=== PATIENT | female | born 1950 | race Caucasian/White ===

== ENCOUNTER 2021-05-29 12:56 | Inpatient (IN) ==
[2021-05-29 14:54] LABS: Basophils % 0.3 % (0.0-0.8); Eosinophils % 0.1 % (0.00-10.9); Hematocrit 29.1 VOL% (35.7-47.0); Hemoglobin 9.4 GM/DL (12.0-16.0); Immature Granulocytes % 1.5 %; Immature Granulocytes Absolute 0.11 #; Lymphocytes # 1.6 10*3/uL (1.4-4.0); Lymphocytes % 21.6 % (21.3-54.2); Mean Corpuscular HGB Conc 32.3 GM/DL (32-36); Mean Corpuscular Volume 100.3 FL (87-102); Mean Platelet Volume 10.1 FL (9.6-12.0); Monocytes % 6.6 % (1.7-12.7); Neutrophils % 69.9 % (38.7-73.9); Platelet Count 106 T/CUMM (130-400); White Blood Count 7.6 T/CUMM (4-12)
[2021-05-29 15:13] LABS: Alanine Aminotransferase 23 U/L (13-56); Albumin 2.3 G/DL (3.4-5.0); Alkaline Phosphatase 79 U/L (45-117); Aspartate Amino Transferase 20 U/L (0-37); Bilirubin,Total < 0.39 MG/DL (0.20-1.00); Blood Urea Nitrogen 42 MG/DL (7-18); Calcium 7.7 MG/DL (8.5-10.1); Carbon Dioxide 22 MMOL/L (21-32); Estimated Glom Filtration Rate 7 ML/MIN; Glucose 220 MG/DL (74-106); Osmolality,Calculated 274.1 MOS/KG (273-304); Potassium 3.8 MMOL/L (3.5-5.1); Sodium 128 MMOL/L (136-145); Total Protein 6.1 G/DL (6.4-8.2)
[2021-05-29] MEDS ORDERED: methylPREDNISolone SOD SUC 125 MG/2 ML VIAL IV STA (16:50)
[2021-05-29] MEDS ORDERED: FAMOTIDINE 20 MG/2 ML VIAL IV STA (16:50)
[2021-05-29] MEDS ORDERED: diphenhydrAMINE 50 MG/1 ML VIAL IV STA (16:50)
[2021-05-29] MEDS ORDERED: ACETAMINOPHEN 325 MG TABLET PO PRN (19:27)
[2021-05-29] MEDS ORDERED: GLUCAGON 1 MG VIAL IM PRN (19:27)
[2021-05-29] MEDS ORDERED: DEXTROSE 10% 250 ML BAG IV PRN (19:44)
[2021-05-29] MEDS ORDERED: SODIUM CHLORIDE 0.9% 1,000 ML IV SCH (20:00)
[2021-05-29] MEDS: PIPERACILLIN/TAZOBACTAM 3,375 MG in SODIUM CHLORIDE 0.9% 100 ML IV SCH (20:15)
[2021-05-29] MEDS: HEPARIN 5,000 UNIT/1 ML VIAL SUBCUT SCH (20:15)
[2021-05-29] MEDS: ASCORBIC ACID 500 MG TABLET PO SCH (21:53)
[2021-05-29] MEDS: INSULIN REGULAR 100 UNIT/ML SUBCUT SCH (22:25)
[2021-05-30] MEDS: BUDESONIDE/FORMOTEROL 160-4.5 INHALER 6 GM INH SCH ×3 (00:20→21:23)
[2021-05-30 04:06] LABS: Basophils % 0.2 % (0.0-0.8); Hematocrit 24.7 VOL% (35.7-47.0); Immature Granulocytes % 1.6 %; Immature Granulocytes Absolute 0.08 #; Lymphocytes # 0.8 10*3/uL (1.4-4.0); Lymphocytes % 15.1 % (21.3-54.2); Mean Corpuscular HGB Conc 32.4 GM/DL (32-36); Mean Platelet Volume 11.3 FL (9.6-12.0); Monocytes % 4.6 % (1.7-12.7); Neutrophils % 78.5 % (38.7-73.9); Platelet Count 110 T/CUMM (130-400); Red Blood Count 2.47 MC/CUMM (3.8-5.5); Red Cell Distribution Width 12.9 % (9.3-17.3)
[2021-05-30 04:25] LABS: Calcium 7.5 MG/DL (8.5-10.1); Osmolality,Calculated 280.1 MOS/KG (273-304); Potassium 5.2 MMOL/L (3.5-5.1)
[2021-05-30 04:34] LABS: Ferritin 1311.2 ng/mL (8-252)
[2021-05-30 04:51] LABS: Band Neutrophils 11 % (0-10); Hypochromia Slight; Lymphocytes 18 % (20-55); Macrocytosis Slight; Ovalocytes Slight; Platelet Estimate Normal; Segmented Neutrophils 67 % (50-85); Total Cells Counted 100
[2021-05-30] MEDS: HEPARIN 5,000 UNIT/1 ML VIAL SUBCUT SCH ×3 (05:50→21:22)
[2021-05-30] MEDS ORDERED: CHOLECALCIFEROL 1,000 UNIT TABLET PO SCH (09:00)
[2021-05-30] MEDS: INSULIN REGULAR 100 UNIT/ML SUBCUT SCH ×4 (09:16→21:21)
[2021-05-30] MEDS: PIPERACILLIN/TAZOBACTAM 3,375 MG in SODIUM CHLORIDE 0.9% 100 ML IV SCH ×2 (09:17→21:23)
[2021-05-30] MEDS: DEXAMETHASONE 4 MG/1 ML VIAL IV SCH (09:20)
[2021-05-30] MEDS: ZINC GLUCONATE 50 MG TABLET PO SCH (09:21)
[2021-05-30] MEDS: CETIRIZINE 10 MG TABLET PO SCH (09:22)
[2021-05-30] MEDS: ASCORBIC ACID 500 MG TABLET PO SCH ×2 (09:24→21:22)
[2021-05-30] MEDS ORDERED: MELATONIN 3 MG TABLET PO SCH (21:00)
[2021-05-30] MEDS: carvediloL 25 MG TABLET PO SCH (21:22)
[2021-05-30] MEDS: risperiDONE 1 MG TABLET PO SCH (21:22)
[2021-05-30] MEDS: ATORVASTATIN 40 MG TABLET PO SCH (21:22)
[2021-05-30] MEDS: RANOLAZINE 500 MG TABLET PO SCH (21:22)
[2021-05-30] MEDS: FAMOTIDINE 20 MG TABLET PO SCH (21:22)
[2021-05-31] MEDS: HEPARIN 5,000 UNIT/1 ML VIAL SUBCUT SCH ×3 (03:55→21:08)
[2021-05-31 05:15] LABS: Hematocrit 23.7 VOL% (35.7-47.0); Immature Granulocytes % 1.3 %; Immature Granulocytes Absolute 0.06 #; Lymphocytes # 1.4 10*3/uL (1.4-4.0); Lymphocytes % 29.5 % (21.3-54.2); Mean Corpuscular HGB Conc 33.8 GM/DL (32-36); Mean Corpuscular Volume 98.8 FL (87-102); Mean Platelet Volume 10.1 FL (9.6-12.0); Neutrophils % 61.2 % (38.7-73.9); Platelet Count 122 T/CUMM (130-400); Red Cell Distribution Width 12.6 % (9.3-17.3); White Blood Count 4.6 T/CUMM (4-12)
[2021-05-31 05:45] LABS: Alanine Aminotransferase 20 U/L (13-56); Alkaline Phosphatase 58 U/L (45-117); Aspartate Amino Transferase 22 U/L (0-37); Bilirubin,Total < 0.39 MG/DL (0.20-1.00); Blood Urea Nitrogen 48 MG/DL (7-18); Calcium 7.7 MG/DL (8.5-10.1); Carbon Dioxide 20 MMOL/L (21-32); Estimated Glom Filtration Rate 8 ML/MIN; Glucose 52 MG/DL (74-106); Osmolality,Calculated 279.1 MOS/KG (273-304); Potassium 3.3 MMOL/L (3.5-5.1); Sodium 135 MMOL/L (136-145); Total Protein 5.6 G/DL (6.4-8.2)
[2021-05-31 05:50] LABS: Osmolality,Calculated 277.2 MOS/KG (273-304); Potassium 3.2 MMOL/L (3.5-5.1)
[2021-05-31 05:53] LABS: Ferritin 1268.4 ng/mL (8-252)
[2021-05-31] MEDS ORDERED: POTASSIUM CHLORIDE 20 MEQ TABLET PO PRN (07:34)
[2021-05-31] MEDS: ASCORBIC ACID 500 MG TABLET PO SCH ×2 (09:54→21:13)
[2021-05-31] MEDS: buPROPion SR 100 MG TABLET PO SCH (09:54)
[2021-05-31] MEDS: CHOLECALCIFEROL 5,000 UNIT TABLET PO SCH (09:54)
[2021-05-31] MEDS: RANOLAZINE 500 MG TABLET PO SCH ×2 (09:54→21:08)
[2021-05-31] MEDS: SERTRALINE 100 MG TABLET PO SCH (09:54)
[2021-05-31] MEDS: EZETIMIBE 10 MG TABLET PO SCH (09:54)
[2021-05-31] MEDS: carvediloL 25 MG TABLET PO SCH (09:54)
[2021-05-31] MEDS: CETIRIZINE 10 MG TABLET PO SCH (09:54)
[2021-05-31] MEDS: ZINC GLUCONATE 50 MG TABLET PO SCH (09:54)
[2021-05-31] MEDS: DEXAMETHASONE 4 MG/1 ML VIAL IV SCH (09:55)
[2021-05-31] MEDS: INSULIN REGULAR 100 UNIT/ML SUBCUT SCH ×4 (09:55→21:08)
[2021-05-31] MEDS: PIPERACILLIN/TAZOBACTAM 3,375 MG in SODIUM CHLORIDE 0.9% 100 ML IV SCH (09:56)
[2021-05-31] MEDS: BUDESONIDE/FORMOTEROL 160-4.5 INHALER 6 GM INH SCH ×2 (09:56→21:08)
[2021-05-31] MEDS: AZITHROMYCIN 250 MG TABLET PO SCH (12:15)
[2021-05-31] MEDS: cefTRIAXone 1,000 MG in SODIUM CHLORIDE 0.9% 100 ML IV SCH (16:11)
[2021-05-31] MEDS: risperiDONE 1 MG TABLET PO SCH (21:09)
[2021-05-31] MEDS: ATORVASTATIN 40 MG TABLET PO SCH (21:09)
[2021-05-31] MEDS: FAMOTIDINE 20 MG TABLET PO SCH (21:09)
[2021-05-31] MEDS: ONDANSETRON 4 MG/2 ML VIAL IV PRN (23:49)
[2021-06-01] MEDS: HEPARIN 5,000 UNIT/1 ML VIAL SUBCUT SCH ×3 (04:57→21:27)
[2021-06-01 05:28] LABS: Hematocrit 23.6 VOL% (35.7-47.0); Hemoglobin 7.6 GM/DL (12.0-16.0); Immature Granulocytes % 1.8 %; Immature Granulocytes Absolute 0.06 #; Lymphocytes % 29.8 % (21.3-54.2); Mean Corpuscular HGB Conc 32.2 GM/DL (32-36); Mean Corpuscular Volume 100.9 FL (87-102); Mean Platelet Volume 9.9 FL (9.6-12.0); Monocytes % 8.3 % (1.7-12.7); Neutrophils % 60.1 % (38.7-73.9); Platelet Count 109 T/CUMM (130-400); Red Blood Count 2.34 MC/CUMM (3.8-5.5); Red Cell Distribution Width 12.8 % (9.3-17.3); White Blood Count 3.3 T/CUMM (4-12)
[2021-06-01 05:35] LABS: Ferritin 1193.2 ng/mL (8-252)
[2021-06-01 05:58] LABS: Calcium 8.2 MG/DL (8.5-10.1); Osmolality,Calculated 282.1 MOS/KG (273-304)
[2021-06-01] MEDS ORDERED: POTASSIUM CHLORIDE 20 MEQ TABLET PO SCH (09:00)
[2021-06-01] MEDS: RANOLAZINE 500 MG TABLET PO SCH ×2 (09:25→21:27)
[2021-06-01] MEDS: buPROPion SR 100 MG TABLET PO SCH (09:25)
[2021-06-01] MEDS: CETIRIZINE 10 MG TABLET PO SCH (09:25)
[2021-06-01] MEDS: SERTRALINE 100 MG TABLET PO SCH (09:25)
[2021-06-01] MEDS: ASCORBIC ACID 500 MG TABLET PO SCH ×2 (09:25→21:27)
[2021-06-01] MEDS: AZITHROMYCIN 250 MG TABLET PO SCH (09:26)
[2021-06-01] MEDS: CHOLECALCIFEROL 5,000 UNIT TABLET PO SCH (09:26)
[2021-06-01] MEDS: ZINC GLUCONATE 50 MG TABLET PO SCH (09:26)
[2021-06-01] MEDS: DEXAMETHASONE 4 MG/1 ML VIAL IV SCH (09:26)
[2021-06-01] MEDS: INSULIN REGULAR 100 UNIT/ML SUBCUT SCH ×4 (09:26→21:27)
[2021-06-01] MEDS: EZETIMIBE 10 MG TABLET PO SCH (09:26)
[2021-06-01] MEDS: BUDESONIDE/FORMOTEROL 160-4.5 INHALER 6 GM INH SCH ×2 (09:27→21:36)
[2021-06-01] MEDS: ONDANSETRON 4 MG/2 ML VIAL IV PRN (09:41)
[2021-06-01] MEDS: cefTRIAXone 1,000 MG in SODIUM CHLORIDE 0.9% 100 ML IV SCH (16:52)
[2021-06-01] MEDS ORDERED: POLYETHYLENE GLYCOL POWDER 17 GM PACK PO PRN (18:28)
[2021-06-01] MEDS: risperiDONE 1 MG TABLET PO SCH (21:27)
[2021-06-01] MEDS: FAMOTIDINE 20 MG TABLET PO SCH (21:27)
[2021-06-01] MEDS: ATORVASTATIN 40 MG TABLET PO SCH (21:27)
[2021-06-01] MEDS: POTASSIUM CHLORIDE 20 MEQ TABLET PO SCH (21:27)
[2021-06-02] MEDS: HEPARIN 5,000 UNIT/1 ML VIAL SUBCUT SCH ×3 (04:52→20:26)
[2021-06-02 07:10] LABS: Eosinophils % 0.2 % (0.00-10.9); Hematocrit 26.6 VOL% (35.7-47.0); Hemoglobin 8.5 GM/DL (12.0-16.0); Immature Granulocytes % 3.8 %; Immature Granulocytes Absolute 0.16 #; Lymphocytes # 1.4 10*3/uL (1.4-4.0); Lymphocytes % 32.6 % (21.3-54.2); Mean Corpuscular Volume 101.9 FL (87-102); Mean Platelet Volume 10.1 FL (9.6-12.0); Monocytes % 7.9 % (1.7-12.7); Neutrophils % 55.5 % (38.7-73.9); Platelet Count 133 T/CUMM (130-400); Red Blood Count 2.61 MC/CUMM (3.8-5.5); Red Cell Distribution Width 13.1 % (9.3-17.3); White Blood Count 4.2 T/CUMM (4-12)
[2021-06-02 07:51] LABS: Calcium 8.8 MG/DL (8.5-10.1); Potassium 3.1 MMOL/L (3.5-5.1)
[2021-06-02] MEDS ORDERED: POTASSIUM CHLORIDE 20 MEQ TABLET PO ONE (08:10)
[2021-06-02 09:20] LABS: % Iron Saturation 94.4 % (18-50)
[2021-06-02] MEDS: INSULIN REGULAR 100 UNIT/ML SUBCUT SCH ×4 (09:40→20:40)
[2021-06-02] MEDS: DEXAMETHASONE 4 MG/1 ML VIAL IV SCH (09:42)
[2021-06-02] MEDS: ZINC GLUCONATE 50 MG TABLET PO SCH (09:43)
[2021-06-02] MEDS: RANOLAZINE 500 MG TABLET PO SCH ×2 (09:43→20:25)
[2021-06-02] MEDS: ASCORBIC ACID 500 MG TABLET PO SCH ×2 (09:43→20:25)
[2021-06-02] MEDS: CETIRIZINE 10 MG TABLET PO SCH (09:43)
[2021-06-02] MEDS: EZETIMIBE 10 MG TABLET PO SCH (09:43)
[2021-06-02] MEDS: buPROPion SR 100 MG TABLET PO SCH (09:43)
[2021-06-02] MEDS: SERTRALINE 100 MG TABLET PO SCH (09:44)
[2021-06-02] MEDS: CHOLECALCIFEROL 5,000 UNIT TABLET PO SCH (09:44)
[2021-06-02] MEDS: AZITHROMYCIN 250 MG TABLET PO SCH (09:44)
[2021-06-02] MEDS: BUDESONIDE/FORMOTEROL 160-4.5 INHALER 6 GM INH SCH ×2 (09:47→20:40)
[2021-06-02] MEDS: POTASSIUM CHLORIDE 20 MEQ TABLET PO SCH ×2 (09:47→20:25)
[2021-06-02] MEDS: INSULIN GLARGINE 100 UNIT/ML SUBCUT SCH (12:10)
[2021-06-02] MEDS: cefTRIAXone 1,000 MG in SODIUM CHLORIDE 0.9% 100 ML IV SCH (17:19)
[2021-06-02] MEDS: FAMOTIDINE 20 MG TABLET PO SCH (20:25)
[2021-06-02] MEDS: ATORVASTATIN 40 MG TABLET PO SCH (20:25)
[2021-06-02] MEDS: risperiDONE 1 MG TABLET PO SCH (20:26)
[2021-06-03] MEDS: HEPARIN 5,000 UNIT/1 ML VIAL SUBCUT SCH ×2 (03:58→12:07)
[2021-06-03 06:19] LABS: Eosinophils % 0.4 % (0.00-10.9); Hematocrit 24.5 VOL% (35.7-47.0); Hemoglobin 7.8 GM/DL (12.0-16.0); Immature Granulocytes % 7.2 %; Immature Granulocytes Absolute 0.36 #; Lymphocytes # 1.8 10*3/uL (1.4-4.0); Lymphocytes % 36.5 % (21.3-54.2); Mean Corpuscular HGB Conc 31.8 GM/DL (32-36); Mean Corpuscular Volume 103.4 FL (87-102); Mean Platelet Volume 9.5 FL (9.6-12.0); Monocytes % 9.6 % (1.7-12.7); Neutrophils % 46.3 % (38.7-73.9); Platelet Count 125 T/CUMM (130-400); Red Blood Count 2.37 MC/CUMM (3.8-5.5); Red Cell Distribution Width 13.2 % (9.3-17.3)
[2021-06-03 06:48] LABS: Hypochromia 1+; Lymphocytes 31 % (20-55); Microcytosis Slight; Platelet Estimate Normal; Segmented Neutrophils 62 % (50-85); Total Cells Counted 100
[2021-06-03 06:53] LABS: Calcium 8.7 MG/DL (8.5-10.1); Ferritin 1111.8 ng/mL (8-252); Osmolality,Calculated 285.3 MOS/KG (273-304); Potassium 4.3 MMOL/L (3.5-5.1)
[2021-06-03] MEDS: INSULIN REGULAR 100 UNIT/ML SUBCUT SCH ×3 (08:39→17:30)
[2021-06-03] MEDS: SERTRALINE 100 MG TABLET PO SCH (09:57)
[2021-06-03] MEDS: buPROPion SR 100 MG TABLET PO SCH (09:57)
[2021-06-03] MEDS: EZETIMIBE 10 MG TABLET PO SCH (09:57)
[2021-06-03] MEDS: RANOLAZINE 500 MG TABLET PO SCH (09:58)
[2021-06-03] MEDS: CETIRIZINE 10 MG TABLET PO SCH (09:58)
[2021-06-03] MEDS: POTASSIUM CHLORIDE 20 MEQ TABLET PO SCH (09:58)
[2021-06-03] MEDS: ZINC GLUCONATE 50 MG TABLET PO SCH (09:58)
[2021-06-03] MEDS: AZITHROMYCIN 250 MG TABLET PO SCH (09:58)
[2021-06-03] MEDS: CHOLECALCIFEROL 5,000 UNIT TABLET PO SCH (09:58)
[2021-06-03] MEDS: ASCORBIC ACID 500 MG TABLET PO SCH (09:58)
[2021-06-03] MEDS: INSULIN GLARGINE 100 UNIT/ML SUBCUT SCH (10:00)
[2021-06-03] MEDS: DEXAMETHASONE 4 MG/1 ML VIAL IV SCH (10:25)
[2021-06-03] MEDS: BUDESONIDE/FORMOTEROL 160-4.5 INHALER 6 GM INH SCH (10:27)
[2021-06-03] MEDS: ONDANSETRON 4 MG/2 ML VIAL IV PRN (12:31)
[2021-06-03 17:31] VITALS: BP 106/72
[2021-06-03] MEDS: cefTRIAXone 1,000 MG in SODIUM CHLORIDE 0.9% 100 ML IV SCH (19:36)
== END 2021-06-03 17:51 | disposition home or self-care (01) | DRG 177 ==
LOC: EDBD → EDUNIT# → N.ED 12:56 → N.EDINP 19:25 → N.5E 05-30 16:28
PROVIDERS: ADMIT Internal Medicine; ATTEND Internal Medicine

== ENCOUNTER 2021-06-14 10:02 | Inpatient (IN) ==
[2021-06-14] MEDS ORDERED: SODIUM CHLORIDE 0.9% 1,000 ML IV STA ×2 (10:36→11:47)
[2021-06-14 10:47] LABS: Basophils % 0.1 % (0.0-0.8); Eosinophils % 0.4 % (0.00-10.9); Hematocrit 33.2 VOL% (35.7-47.0); Hemoglobin 10.8 GM/DL (12.0-16.0); Immature Granulocytes % 5.2 %; Lymphocytes # 1.1 10*3/uL (1.4-4.0); Lymphocytes % 14.1 % (21.3-54.2); Mean Corpuscular HGB Conc 32.5 GM/DL (32-36); Mean Corpuscular Volume 102.8 FL (87-102); Mean Platelet Volume 10.5 FL (9.6-12.0); Monocytes % 7.2 % (1.7-12.7); NRBC # 0.03 10*3/uL; Platelet Count 141 T/CUMM (130-400); Red Blood Count 3.23 MC/CUMM (3.8-5.5); Red Cell Distribution Width 14.1 % (9.3-17.3); White Blood Count 7.6 T/CUMM (4-12)
[2021-06-14 11:10] LABS: Hypochromia 1+; Lymphocytes 12 % (20-55); Microcytosis 1+; Platelet Estimate Adequate; Segmented Neutrophils 79 % (50-85); Total Cells Counted 100
[2021-06-14 11:31] LABS: Albumin 2.7 G/DL (3.4-5.0); Bilirubin,Total 0.6 MG/DL (0.20-1.00); Calcium 8.9 MG/DL (8.5-10.1); Osmolality,Calculated 282.1 MOS/KG (273-304); Total Protein 5.9 G/DL (6.4-8.2)
[2021-06-14 11:41] LABS: Potassium 6.2 MMOL/L (3.5-5.1)
[2021-06-14] MEDS ORDERED: INSULIN REGULAR 100 UNIT/ML IV STA (11:46)
[2021-06-14] MEDS ORDERED: DEXTROSE 50% 25 GM/50 ML VIAL IV STA (11:46)
[2021-06-14] MEDS ORDERED: SODIUM BICARBONATE 50 MEQ/50 ML VIAL IV STA (11:46)
[2021-06-14 11:47] LABS: Bilirubin,Urine Negative (Negative); Blood, Urine Negative (Negative); Glucose,Urine (UA) 50 mg/dL (Negative); Ketones,Urine Negative (Negative); Nitrite,Urine Negative (Negative); Protein,Urine 30 MG/DL; Squamous Epithelial Cell,Urine Occasional /HPF (0-10); Urine Appearance Slightly Hazy (Clear); Urine Color Amber (Yellow); Urine Specific Gravity 1.018 (1.001-1.035); Urine Urobilinogen < 2.0 EU/DL (<2.0)
[2021-06-14] MEDS ORDERED: DEXTROSE 50% 25 GM/50 ML SYRINGE IV ONE (12:01)
[2021-06-14] MEDS ORDERED: ACETAMINOPHEN 325 MG TABLET PO PRN (14:01)
[2021-06-14] MEDS ORDERED: DEXTROSE 50% 25 GM/50 ML VIAL IV PRN (14:01)
[2021-06-14] MEDS ORDERED: ONDANSETRON 4 MG/2 ML VIAL IV PRN (14:01)
[2021-06-14] MEDS ORDERED: GLUCAGON 1 MG VIAL IM PRN ×2 (14:01)
[2021-06-14] MEDS ORDERED: AZITHROMYCIN INJ 500 MG in SODIUM CHLORIDE 0.9% 250 ML IV ONE (14:07)
[2021-06-14] MEDS ORDERED: ALBUTEROL 2.5 MG/3 ML NEB RESP TX PRN (14:56)
[2021-06-14] MEDS: CETIRIZINE 10 MG TABLET PO SCH (14:57)
[2021-06-14] MEDS: INSULIN LISPRO 100 UNIT/ML SUBCUT SCH ×2 (16:20→22:11)
[2021-06-14] MEDS: cefTRIAXone 1,000 MG in SODIUM CHLORIDE 0.9% 100 ML IV SCH (18:01)
[2021-06-14] MEDS ORDERED: risperiDONE 1 MG TABLET PO SCH (21:00)
[2021-06-14] MEDS: ATORVASTATIN 40 MG TABLET PO SCH (22:11)
[2021-06-14] MEDS: RANOLAZINE 500 MG TABLET PO SCH (22:11)
[2021-06-14] MEDS: ASCORBIC ACID 500 MG TABLET PO SCH (22:11)
[2021-06-14] MEDS: APIXABAN 2.5 MG TABLET PO SCH (22:11)
[2021-06-15 05:57] LABS: Basophils % 0.1 % (0.0-0.8); Eosinophils % 0.3 % (0.00-10.9); Hemoglobin 7.4 GM/DL (12.0-16.0); Immature Granulocytes % 5.9 %; Lymphocytes # 1.2 10*3/uL (1.4-4.0); Lymphocytes % 17.5 % (21.3-54.2); Mean Corpuscular HGB Conc 30.8 GM/DL (32-36); Mean Corpuscular Volume 106.7 FL (87-102); Monocytes % 8.5 % (1.7-12.7); NRBC # 0.02 10*3/uL; Neutrophils % 67.7 % (38.7-73.9); Platelet Count 141 T/CUMM (130-400); Red Blood Count 2.25 MC/CUMM (3.8-5.5); Red Cell Distribution Width 14.2 % (9.3-17.3); White Blood Count 6.7 T/CUMM (4-12)
[2021-06-15 06:24] LABS: Anisocytosis 2+; Band Neutrophils 6 % (0-10); Lymphocytes 19 % (20-55); Nucleated Red Blood Cells 1 (0-5); Platelet Estimate Adequate; Segmented Neutrophils 67 % (50-85); Total Cells Counted 100
[2021-06-15 06:25] LABS: Macrocytosis 1+
[2021-06-15 06:29] LABS: Albumin 2.2 G/DL (3.4-5.0); Bilirubin,Total 0.5 MG/DL (0.20-1.00); Calcium 8.7 MG/DL (8.5-10.1); Ferritin 1258.2 ng/mL (8-252); Osmolality,Calculated 286.2 MOS/KG (273-304); Potassium 5.5 MMOL/L (3.5-5.1); Total Protein 5.5 G/DL (6.4-8.2)
[2021-06-15] MEDS: DEXTROSE 10% 250 ML BAG IV PRN ×2 (06:43→15:37)
[2021-06-15] MEDS ORDERED: SODIUM POLYSTYRENE SULFATE 15 GM/60 ML BOTTLE PO ONE (08:22)
[2021-06-15] MEDS ORDERED: buPROPion SR 100 MG TABLET PO SCH (09:00)
[2021-06-15] MEDS: INSULIN LISPRO 100 UNIT/ML SUBCUT SCH ×3 (12:02→20:50)
[2021-06-15] MEDS: DEXAMETHASONE 4 MG/1 ML VIAL IV SCH (13:58)
[2021-06-15] MEDS: PANTOPRAZOLE 40 MG TABLET PO SCH (14:06)
[2021-06-15] MEDS: RANOLAZINE 500 MG TABLET PO SCH ×2 (14:06→20:22)
[2021-06-15] MEDS: APIXABAN 2.5 MG TABLET PO SCH ×2 (14:06→20:22)
[2021-06-15] MEDS: CHOLECALCIFEROL 5,000 UNIT TABLET PO SCH (14:07)
[2021-06-15] MEDS: calcitrioL 0.25 MCG CAPSULE PO SCH (14:07)
[2021-06-15] MEDS: ZINC GLUCONATE 50 MG TABLET PO SCH (14:07)
[2021-06-15] MEDS: ASCORBIC ACID 500 MG TABLET PO SCH ×2 (14:07→20:22)
[2021-06-15] MEDS: EZETIMIBE 10 MG TABLET PO SCH (14:07)
[2021-06-15] MEDS: SERTRALINE 100 MG TABLET PO SCH (14:08)
[2021-06-15] MEDS: CETIRIZINE 10 MG TABLET PO SCH (14:08)
[2021-06-15] MEDS: AZITHROMYCIN 250 MG TABLET PO SCH (14:08)
[2021-06-15] MEDS ORDERED: SODIUM POLYSTYRENE SULFATE 15 GM/60 ML BOTTLE RECTAL ONE (14:53)
[2021-06-15] MEDS ORDERED: FLUCONAZOLE INJ 200 MG/100 ML PREMIX IV ONE (16:00)
[2021-06-15] MEDS: DEXTROSE 10% 1,000 ML IV SCH (19:14)
[2021-06-15] MEDS: cefTRIAXone 1,000 MG in SODIUM CHLORIDE 0.9% 100 ML IV SCH (19:15)
[2021-06-15] MEDS: ATORVASTATIN 40 MG TABLET PO SCH (20:22)
[2021-06-15] MEDS: DESITIN 4OZ/NYSTATIN 15 GRAM MIXTURE PASTE TOP SCH (21:07)
[2021-06-16 05:59] LABS: Hematocrit 21.8 VOL% (35.7-47.0); Hemoglobin 6.8 GM/DL (12.0-16.0); Lymphocytes % 20.6 % (21.3-54.2); Mean Corpuscular HGB Conc 31.2 GM/DL (32-36); Mean Corpuscular Volume 105.8 FL (87-102); Mean Platelet Volume 10.1 FL (9.6-12.0); Monocytes % 5.8 % (1.7-12.7); NRBC # 0.02 10*3/uL; Neutrophils % 67.6 % (38.7-73.9); Platelet Count 159 T/CUMM (130-400); Red Blood Count 2.06 MC/CUMM (3.8-5.5); Red Cell Distribution Width 14.3 % (9.3-17.3)
[2021-06-16 06:14] LABS: Calcium 8.1 MG/DL (8.5-10.1); Osmolality,Calculated 294.2 MOS/KG (273-304); Potassium 4.8 MMOL/L (3.5-5.1)
[2021-06-16] MEDS ORDERED: SODIUM CHLORIDE 0.9% 1,000 ML IV PRN (07:44)
[2021-06-16 07:47] LABS: Anisocytosis 2+; Band Neutrophils 13 % (0-10); Eosinophils 1 % (0-10); Lymphocytes 18 % (20-55); Metamyelocytes 1 %; Myelocytes 1 %; Nucleated Red Blood Cells 2 (0-5); Platelet Estimate Normal; Promyelocytes 1 %; Segmented Neutrophils 61 % (50-85); Spherocytes Few; Total Cells Counted 100
[2021-06-16 07:48] LABS: Macrocytosis 1+; Ovalocytes Few
[2021-06-16] MEDS: INSULIN LISPRO 100 UNIT/ML SUBCUT SCH ×4 (11:14→21:38)
[2021-06-16] MEDS: ZINC GLUCONATE 50 MG TABLET PO SCH (11:27)
[2021-06-16] MEDS: EZETIMIBE 10 MG TABLET PO SCH (11:27)
[2021-06-16] MEDS: APIXABAN 2.5 MG TABLET PO SCH ×2 (11:27→21:38)
[2021-06-16] MEDS: SERTRALINE 100 MG TABLET PO SCH (11:28)
[2021-06-16] MEDS: RANOLAZINE 500 MG TABLET PO SCH ×2 (11:29→21:39)
[2021-06-16] MEDS: CETIRIZINE 10 MG TABLET PO SCH (11:29)
[2021-06-16] MEDS: CHOLECALCIFEROL 5,000 UNIT TABLET PO SCH (11:29)
[2021-06-16] MEDS: PANTOPRAZOLE 40 MG TABLET PO SCH (11:30)
[2021-06-16] MEDS: AZITHROMYCIN 250 MG TABLET PO SCH (11:30)
[2021-06-16] MEDS: calcitrioL 0.25 MCG CAPSULE PO SCH (11:30)
[2021-06-16] MEDS: ASCORBIC ACID 500 MG TABLET PO SCH ×2 (11:30→21:38)
[2021-06-16] MEDS: DEXAMETHASONE 4 MG/1 ML VIAL IV SCH (11:36)
[2021-06-16] MEDS: DESITIN 4OZ/NYSTATIN 15 GRAM MIXTURE PASTE TOP SCH ×2 (11:42→21:40)
[2021-06-16] MEDS: cefTRIAXone 1,000 MG in SODIUM CHLORIDE 0.9% 100 ML IV SCH (17:21)
[2021-06-16] MEDS: ATORVASTATIN 40 MG TABLET PO SCH (21:39)
[2021-06-17] MEDS: DEXTROSE 10% 1,000 ML IV SCH (03:50)
[2021-06-17 06:13] LABS: Eosinophils % 0.2 % (0.00-10.9); Hematocrit 26.8 VOL% (35.7-47.0); Immature Granulocytes Absolute 0.34 #; Lymphocytes # 1.4 10*3/uL (1.4-4.0); Lymphocytes % 24.5 % (21.3-54.2); Mean Corpuscular HGB Conc 32.5 GM/DL (32-36); Mean Corpuscular Volume 98.9 FL (87-102); Mean Platelet Volume 10.1 FL (9.6-12.0); Monocytes % 8.2 % (1.7-12.7); NRBC # 0.03 10*3/uL; Neutrophils % 61.1 % (38.7-73.9); Platelet Count 150 T/CUMM (130-400); Red Blood Count 2.71 MC/CUMM (3.8-5.5); Red Cell Distribution Width 15.8 % (9.3-17.3); White Blood Count 5.7 T/CUMM (4-12)
[2021-06-17 06:15] LABS: Hemoglobin 8.7 GM/DL (12.0-16.0)
[2021-06-17 06:25] LABS: Calcium 8.6 MG/DL (8.5-10.1); Osmolality,Calculated 283.9 MOS/KG (273-304); Potassium 3.7 MMOL/L (3.5-5.1)
[2021-06-17 06:40] LABS: Hypochromia 1+; Lymphocytes 29 % (20-55); Microcytosis 1+; Nucleated Red Blood Cells 1 (0-5); Platelet Estimate Adequate; Segmented Neutrophils 67 % (50-85); Total Cells Counted 100
[2021-06-17] MEDS ORDERED: MAGNESIUM SULF RIDER 2 GM/50 ML PREMIX IV ONE (07:00)
[2021-06-17] MEDS: ZINC GLUCONATE 50 MG TABLET PO SCH (10:34)
[2021-06-17] MEDS: CHOLECALCIFEROL 5,000 UNIT TABLET PO SCH (10:34)
[2021-06-17] MEDS: SODIUM BICARBONATE 650 MG TABLET PO SCH ×2 (10:34→21:43)
[2021-06-17] MEDS: ASCORBIC ACID 500 MG TABLET PO SCH ×2 (10:34→21:43)
[2021-06-17] MEDS: RANOLAZINE 500 MG TABLET PO SCH ×2 (10:34→21:43)
[2021-06-17] MEDS: SERTRALINE 100 MG TABLET PO SCH (10:34)
[2021-06-17] MEDS: calcitrioL 0.25 MCG CAPSULE PO SCH (10:35)
[2021-06-17] MEDS: AZITHROMYCIN 250 MG TABLET PO SCH (10:35)
[2021-06-17] MEDS: EZETIMIBE 10 MG TABLET PO SCH (10:35)
[2021-06-17] MEDS: CETIRIZINE 10 MG TABLET PO SCH (10:35)
[2021-06-17] MEDS: PANTOPRAZOLE 40 MG TABLET PO SCH (10:35)
[2021-06-17] MEDS: APIXABAN 2.5 MG TABLET PO SCH ×2 (10:35→21:43)
[2021-06-17] MEDS: INSULIN LISPRO 100 UNIT/ML SUBCUT SCH ×4 (10:36→21:44)
[2021-06-17] MEDS: DEXAMETHASONE 4 MG/1 ML VIAL IV SCH (10:36)
[2021-06-17] MEDS: DESITIN 4OZ/NYSTATIN 15 GRAM MIXTURE PASTE TOP SCH ×2 (10:37→21:44)
[2021-06-17] MEDS: cefTRIAXone 1,000 MG in SODIUM CHLORIDE 0.9% 100 ML IV SCH (17:17)
[2021-06-17] MEDS: ATORVASTATIN 40 MG TABLET PO SCH (21:43)
[2021-06-18 05:48] LABS: Basophils % 0.1 % (0.0-0.8); Eosinophils # 0.1 10*3/uL (0.0-0.87); Eosinophils % 0.7 % (0.00-10.9); Hemoglobin 9.4 GM/DL (12.0-16.0); Immature Granulocytes Absolute 0.44 #; Lymphocytes # 1.6 10*3/uL (1.4-4.0); Lymphocytes % 21.8 % (21.3-54.2); Mean Corpuscular HGB Conc 33.6 GM/DL (32-36); Mean Corpuscular Volume 98.2 FL (87-102); Mean Platelet Volume 10.5 FL (9.6-12.0); Monocytes % 8.7 % (1.7-12.7); NRBC # 0.03 10*3/uL; Neutrophils % 62.7 % (38.7-73.9); Platelet Count 137 T/CUMM (130-400); Red Blood Count 2.85 MC/CUMM (3.8-5.5); Red Cell Distribution Width 15.3 % (9.3-17.3); White Blood Count 7.3 T/CUMM (4-12)
[2021-06-18 06:13] LABS: Eosinophils 1 % (0-10); Hypochromia 1+; Lymphocytes 22 % (20-55); Microcytosis 1+; Platelet Estimate Normal; Segmented Neutrophils 69 % (50-85); Total Cells Counted 100
[2021-06-18 06:35] LABS: Calcium 8.7 MG/DL (8.5-10.1); Osmolality,Calculated 269.5 MOS/KG (273-304); Potassium 3.5 MMOL/L (3.5-5.1)
[2021-06-18] MEDS: CHOLECALCIFEROL 5,000 UNIT TABLET PO SCH (11:11)
[2021-06-18] MEDS: EZETIMIBE 10 MG TABLET PO SCH (11:11)
[2021-06-18] MEDS: SERTRALINE 100 MG TABLET PO SCH (11:11)
[2021-06-18] MEDS: ASCORBIC ACID 500 MG TABLET PO SCH ×2 (11:11→21:37)
[2021-06-18] MEDS: DEXAMETHASONE 4 MG/1 ML VIAL IV SCH (11:11)
[2021-06-18] MEDS: SODIUM BICARBONATE 650 MG TABLET PO SCH ×3 (11:11→21:37)
[2021-06-18] MEDS: ZINC GLUCONATE 50 MG TABLET PO SCH (11:11)
[2021-06-18] MEDS: CETIRIZINE 10 MG TABLET PO SCH (11:11)
[2021-06-18] MEDS: RANOLAZINE 500 MG TABLET PO SCH ×2 (11:11→21:37)
[2021-06-18] MEDS: DESITIN 4OZ/NYSTATIN 15 GRAM MIXTURE PASTE TOP SCH ×2 (11:12→21:38)
[2021-06-18] MEDS: APIXABAN 2.5 MG TABLET PO SCH ×2 (11:12→21:37)
[2021-06-18] MEDS: INSULIN LISPRO 100 UNIT/ML SUBCUT SCH ×4 (11:12→21:37)
[2021-06-18] MEDS: PANTOPRAZOLE 40 MG TABLET PO SCH (11:12)
[2021-06-18] MEDS: calcitrioL 0.25 MCG CAPSULE PO SCH (11:12)
[2021-06-18] MEDS: AZITHROMYCIN 250 MG TABLET PO SCH ×2 (11:43→13:25)
[2021-06-18] MEDS: cefTRIAXone 1,000 MG in SODIUM CHLORIDE 0.9% 100 ML IV SCH (17:33)
[2021-06-18] MEDS: DEXTROSE 10% 1,000 ML IV SCH (18:03)
[2021-06-18] MEDS: ATORVASTATIN 40 MG TABLET PO SCH (21:37)
[2021-06-18] MEDS: INSULIN GLARGINE 100 UNIT/ML SUBCUT SCH (21:38)
[2021-06-19 05:19] LABS: Basophils % 0.1 % (0.0-0.8); Eosinophils % 0.3 % (0.00-10.9); Hematocrit 28.3 VOL% (35.7-47.0); Hemoglobin 9.5 GM/DL (12.0-16.0); Immature Granulocytes Absolute 0.35 #; Lymphocytes # 1.6 10*3/uL (1.4-4.0); Lymphocytes % 22.5 % (21.3-54.2); Mean Corpuscular HGB Conc 33.6 GM/DL (32-36); Mean Corpuscular Volume 96.6 FL (87-102); Mean Platelet Volume 9.5 FL (9.6-12.0); Neutrophils % 63.1 % (38.7-73.9); Platelet Count 166 T/CUMM (130-400); Red Blood Count 2.93 MC/CUMM (3.8-5.5)
[2021-06-19 05:41] LABS: Hypochromia 1+; Lymphocytes 23 % (20-55); Microcytosis 1+; Platelet Estimate Adequate; Segmented Neutrophils 64 % (50-85); Total Cells Counted 100
[2021-06-19 05:54] LABS: Calcium 9.1 MG/DL (8.5-10.1); Osmolality,Calculated 275.7 MOS/KG (273-304); Potassium 2.8 MMOL/L (3.5-5.1)
[2021-06-19] MEDS: SERTRALINE 100 MG TABLET PO SCH (08:54)
[2021-06-19] MEDS: CETIRIZINE 10 MG TABLET PO SCH (08:55)
[2021-06-19] MEDS: ASCORBIC ACID 500 MG TABLET PO SCH ×2 (08:55→21:45)
[2021-06-19] MEDS: AZITHROMYCIN 250 MG TABLET PO SCH (08:55)
[2021-06-19] MEDS: PANTOPRAZOLE 40 MG TABLET PO SCH (08:55)
[2021-06-19] MEDS: EZETIMIBE 10 MG TABLET PO SCH (08:56)
[2021-06-19] MEDS: RANOLAZINE 500 MG TABLET PO SCH ×2 (08:56→21:45)
[2021-06-19] MEDS: ZINC GLUCONATE 50 MG TABLET PO SCH (08:56)
[2021-06-19] MEDS: SODIUM BICARBONATE 650 MG TABLET PO SCH ×3 (08:56→21:45)
[2021-06-19] MEDS: CHOLECALCIFEROL 5,000 UNIT TABLET PO SCH (08:56)
[2021-06-19] MEDS: APIXABAN 2.5 MG TABLET PO SCH ×2 (08:56→21:45)
[2021-06-19] MEDS: INSULIN LISPRO 100 UNIT/ML SUBCUT SCH ×4 (08:57→21:46)
[2021-06-19] MEDS: DEXAMETHASONE 4 MG/1 ML VIAL IV SCH (08:59)
[2021-06-19] MEDS ORDERED: GLIMEPIRIDE 4 MG TABLET PO SCH (09:00)
[2021-06-19] MEDS: DESITIN 4OZ/NYSTATIN 15 GRAM MIXTURE PASTE TOP SCH ×2 (09:02→21:46)
[2021-06-19] MEDS ORDERED: POTASSIUM CHLORIDE 20 MEQ TABLET PO ONE (14:01)
[2021-06-19] MEDS: calcitrioL 0.25 MCG CAPSULE PO SCH (14:30)
[2021-06-19] MEDS: DEXTROSE 10% 1,000 ML IV SCH (16:40)
[2021-06-19] MEDS: POTASSIUM CHLORIDE 20 MEQ TABLET PO SCH ×2 (18:02→21:45)
[2021-06-19] MEDS: cefTRIAXone 1,000 MG in SODIUM CHLORIDE 0.9% 100 ML IV SCH (18:02)
[2021-06-19] MEDS: ATORVASTATIN 40 MG TABLET PO SCH (21:45)
[2021-06-19] MEDS: INSULIN GLARGINE 100 UNIT/ML SUBCUT SCH (21:46)
[2021-06-20 01:26] VITALS: BP 138/84
== END 2021-06-20 00:20 | disposition swing bed (61) | DRG 177 ==
LOC: EDUNIT# → N.ED 10:02 → SUATTDRO 14:01 → N.EDINP 14:01 → N.TELEN 06-15 01:18
PROVIDERS: ADMIT Internal Medicine; ATTEND Internal Medicine